=== PATIENT | female | born 1990 | race African-American/Black ===

== ENCOUNTER 2016-12-22 20:59 | Inpatient (IN) | payer MEDICAID ==
[~2016-12-22] VITALS: Ht 165.1 cm; Wt 61.2 kg
[2016-12-22] MEDS ORDERED: LACTATED RINGERS 1,000 ML IV SCH (21:27)
[2016-12-22] MEDS ORDERED: DEXT 5%/LR + PITOCIN 20UNITS/L 1,000 ML IV SCH ×2 (21:27→23:04)
[2016-12-22] MEDS ORDERED: NALOXONE HCL 0.4 MG/ML 1ML VIAL IM PRN (21:30)
[2016-12-22] MEDS ORDERED: METHYLERGONOVINE MALEATE 0.2 MG/ML IM PRN (21:30)
[2016-12-22] MEDS ORDERED: CARBOPROST TROMETHAMINE 250 MCG/ML AMPUL IM PRN (21:30)
[2016-12-22] MEDS ORDERED: MISOPROSTOL 100MCG TABLET VG SCH (21:30)
[2016-12-22 21:41] LABS: BASOPHILS % 0.2 % (0.0-2.0); HEMOGLOBIN. 11.7 g/dL (12.0-16.0); LYMPHOCYTES % 18.4 % (20.0-50.0); MEAN CORPUSCULAR HEMOGLOBIN 29.2 pg (28.0-32.0); MEAN CORPUSCULAR VOLUME 87.7 fL (81.0-99.0); MEAN PLATELET VOLUME 9.6 fl (7.4-10.4); MONOCYTES % 7.7 % (2.0-8.0); NEUTROPHILS % 72.7 % (40.0-76.0); PLATELET 231 x1000/uL (130-400); RED BLOOD CELL COUNT 3.99 mill/uL (4.2-5.4); RED CELL DISTRIBUTION WIDTH 15.1 % (11.6-14.6)
[2016-12-22] MEDS ORDERED: DEXT 5%/LACTATED RINGERS 1,000 ML IV ONE (21:45)
[2016-12-22 21:51] LABS: INR 0.9; PARTIAL THROMBOPLASTIN TIME 31.4 sec (24.0-34.0); PROTHROMBIN TIME 9.4 sec
[2016-12-22] MEDS ORDERED: MORPHINE SULFATE/PF 1MG/ML 10ML AMP ONE (22:23)
[2016-12-22] MEDS ORDERED: LIDOCAINE HCL 1% 20ML VIAL (Pyxis) INJ ONE (22:31)
[2016-12-22] MEDS ORDERED: PROPOFOL 200MG/20ML VIAL IV ONE (22:31)
[2016-12-22] MEDS ORDERED: FENTANYL CITRATE/PF 50MCG/ML 2ML VIAL ONE ×3 (22:31→22:48)
[2016-12-22] MEDS ORDERED: SUCCINYLCHOLINE CHLORIDE 200MG/10ML VIAL IV ONE (22:33)
[2016-12-22 22:39] LABS: RUBELLA IGG 12.2 IU/mL (4.99-10)
[2016-12-22 22:40] LABS: HEPATITIS B SURFACE ANTIGEN NEGATIVE
[2016-12-22] MEDS ORDERED: OXYTOCIN 10 UNITS/ML 1ML ONE (23:02)
[2016-12-22] MEDS ORDERED: DEXAMETHASONE 4MG/ML 1ML VIAL ONE (23:02)
[2016-12-22] MEDS ORDERED: EPHEDRINE SULFATE 50MG/ML VIAL ONE (23:02)
[2016-12-22] MEDS ORDERED: SODIUM CHLORIDE 0.9% 10ML VIAL ONE (23:02)
[2016-12-22] MEDS ORDERED: PHENYLEPHRINE HCL 10 MG/ML 1ML (IV VIAL) IV ONE (23:03)
[2016-12-22] MEDS ORDERED: LANOLIN OINT 0.25 GM TUBE TOP PRN (23:15)
[2016-12-22] MEDS ORDERED: ACETAMINOPHEN WITH CODEINE 300/30MG TABLET PO PRN (23:15)
[2016-12-22] MEDS ORDERED: MORPHINE SULFATE 5 MG/ML VIAL IM PRN (23:15)
[2016-12-22] MEDS ORDERED: ACETAMINOPHEN 500MG TABLET PO PRN (23:15)
[2016-12-22] MEDS ORDERED: HEMORRHOIDAL SUPP PR PRN (23:15)
[2016-12-22] MEDS ORDERED: DIPHENHYDRAMINE 25MG CAPSULE PO PRN (23:15)
[2016-12-22] MEDS ORDERED: BISACODYL 10MG SUPP PR PRN (23:15)
[2016-12-22] MEDS ORDERED: RHO(D) IMMUNE GLOBULIN 300 MCG/SYR IM PRN (23:15)
[2016-12-22] MEDS ORDERED: MIDAZOLAM HCL 2 MG/2 ML VIAL ONE (23:17)
[2016-12-22] MEDS ORDERED: DIPHENHYDRAMINE 50MG/ML VIAL IV PRN (23:30)
[2016-12-22] MEDS ORDERED: NALOXONE HCL 0.4 MG/ML 1ML VIAL IV PRN (23:30)
[2016-12-22] MEDS ORDERED: ONDANSETRON HCL 4MG/2ML VIAL IV PRN (23:30)
[2016-12-22] MEDS ORDERED: MORPHINE SULFATE 4 MG/ML CPJ (NOT FOR IM USE) IV PRN (23:30)
[2016-12-22 23:37] LABS: CLARITY URINE CLEAR (CLEAR); COLOR URINE YELLOW (YELLOW); GLUCOSE URINE 1+ (NEGATIVE); KETONES URINE NEGATIVE (NEGATIVE); LEUKOCYTE ESTERASE URINE NEGATIVE (NEGATIVE); NITRITE URINE NEGATIVE (NEGATIVE); OCCULT BLOOD URINE TRACE (NEGATIVE); PROTEIN URINE NEGATIVE (NEGATIVE); SPECIFIC GRAVITY URINE 1.006 (1.005-1.030); UROBILINOGEN URINE 0.2 E.U./dL (0.2-1.0)
[2016-12-23] VITALS (8 sets, daily range): BP systolic 109–128; BP diastolic 67–85
[2016-12-23 00:27] LABS: *AMPHETAMINES SCREEN URINE NEGATIVE (NEGATIVE); *BARBITURATES SCREEN URINE NEGATIVE (NEGATIVE); *BENZODIAZEPINES SCREEN URINE NEGATIVE (NEGATIVE); CANNABINOID URINE SCREEN NEGATIVE (NEGATIVE); METHADONE URINE SCREEN NEGATIVE (NEGATIVE); OPIATES URINE SCREEN NEGATIVE (NEGATIVE); PHENCYCLIDINE URINE SCREEN NEGATIVE (NEGATIVE)
[2016-12-23 00:43] LABS: *COCAINE SCREEN URINE PRESUMTIVE POSITIVE (NEGATIVE)
[2016-12-23] MEDS: KETOROLAC 30MG/ML VIAL IV SCH ×2 (09:12→15:31)
[2016-12-23] MEDS: PRENATAL VIT/FE FUMARATE/FA TABLET PO SCH (09:13)
[2016-12-23] MEDS: SIMETHICONE 80MG TABLET CHEW PO SCH ×3 (09:13→15:35)
[2016-12-23] MEDS: FERROUS SULFATE 325MG TABLET PO SCH ×2 (13:00→15:35)
[2016-12-23 16:50] LABS: BASOPHILS % 0.1 % (0.0-2.0); EOSINOPHILS % 0.1 % (0.0-5.0); HEMATOCRIT. 28.4 % (36.0-48.0); HEMOGLOBIN. 9.5 g/dL (12.0-16.0); LYMPHOCYTES % 11.7 % (20.0-50.0); MEAN CORPUSCULAR HEMOGLOBIN 29.4 pg (28.0-32.0); MEAN CORPUSCULAR VOLUME 87.8 fL (81.0-99.0); MEAN PLATELET VOLUME 10.3 fl (7.4-10.4); MONOCYTES % 8.7 % (2.0-8.0); NEUTROPHILS % 79.4 % (40.0-76.0); PLATELET 217 x1000/uL (130-400); RED BLOOD CELL COUNT 3.23 mill/uL (4.2-5.4); RED CELL DISTRIBUTION WIDTH 15.7 % (11.6-14.6)
[2016-12-23] MEDS: DOCUSATE SODIUM 100MG CAPSULE PO SCH (20:53)
[2016-12-24] VITALS: BP 110/69
[2016-12-24] MEDS: OXYCODONE HCL/ACETAMINOPHEN 5/325MG TABLET PO PRN ×2 (03:59→14:11)
[2016-12-24] MEDS: SIMETHICONE 80MG TABLET CHEW PO SCH ×5 (04:01→21:05)
[2016-12-24 04:15] VITALS: BP 112/71
[2016-12-24 07:55] VITALS: BP 110/74
[2016-12-24] MEDS: FERROUS SULFATE 325MG TABLET PO SCH ×3 (08:31→18:29)
[2016-12-24] MEDS: PRENATAL VIT/FE FUMARATE/FA TABLET PO SCH (08:31)
[2016-12-24 13:00] VITALS: BP 119/72
[2016-12-24 16:45] VITALS: BP 123/72
[2016-12-24] MEDS ORDERED: TETANUS AND DIPHTHERIA TOX/PF 0.5ML SYR (ADULT) IM ONE (18:00)
[2016-12-24 20:10] VITALS: BP 112/77
[2016-12-24] MEDS: DOCUSATE SODIUM 100MG CAPSULE PO SCH (21:04)
[2016-12-25 04:30] VITALS: BP 110/66
[2016-12-25] MEDS: OXYCODONE HCL/ACETAMINOPHEN 5/325MG TABLET PO PRN (05:47)
[2016-12-25 08:00] VITALS: BP 110/67
[2016-12-25] MEDS ORDERED: TETANUS, DIPHTHERIA, PERTUSSIS VAC/PF 0.5ML (>7YR OLD) IM ONE (14:00)
[2016-12-30 04:36] LABS: COCAINE CONFIRMATION URINE Positive (.)
== END 2016-12-25 15:00 | disposition home or self-care (01) | DRG 540 ==
LOC: OBSVTOIN 20:59 → L&D 20:59 → 7EST PP/OB 12-23 02:30
PROVIDERS: ADMIT Obstetrics & Gynecology; ATTEND Obstetrics & Gynecology
PROC: 10D00Z1 Extraction of Products of Conception, Low, Open Approach (ICD-10-PCS; principal; 2016-12-22 23:59)
DX: O34.211 Maternal care for low transverse scar from previous cesarean delivery (principal); O45.93 Premature separation of placenta, unspecified, third trimester; Z37.0 Single live birth; Z3A.33 33 weeks gestation of pregnancy; O90.81 Anemia of the puerperium; D62 Acute posthemorrhagic anemia
CPT/HCPCS: 36415; 76815; 80305; 80353; 81001; 85025; 85610; 85730; 86592; 86703; 86762; 86850; 86900; 87340; 88307; 90714; 90715; A4216; J0171; J0330; J1100; J1200; J1885; J2250; J2274; J2370; J2590; J2704; J3010; J3490; J7120; A4315

== ENCOUNTER 2017-11-14 00:58 | Inpatient (IN) | payer MEDICAID ==
[~2017-11-14] VITALS: Ht 162.6 cm; Wt 68.0 kg
[2017-11-14] MEDS ORDERED: LACTATED RINGERS 1,000 ML IV SCH (01:15)
[2017-11-14] MEDS ORDERED: TERBUTALINE SULFATE 1MG/ML VIAL SUBCUT NR (01:15)
[2017-11-14] MEDS ORDERED: CARBOPROST TROMETHAMINE 250 MCG/ML AMPUL IM PRN (02:30)
[2017-11-14] MEDS ORDERED: MISOPROSTOL 100MCG TABLET VG SCH (02:30)
[2017-11-14] MEDS ORDERED: NALOXONE HCL 0.4 MG/ML 1ML VIAL IM PRN (02:30)
[2017-11-14] MEDS ORDERED: METHYLERGONOVINE MALEATE 0.2 MG/ML IM PRN (02:30)
[2017-11-14] MEDS ORDERED: PHENYLEPHRINE HCL 10 MG/ML 1ML (IV VIAL) IV ONE (02:38)
[2017-11-14] MEDS ORDERED: FENTANYL CITRATE/PF 50MCG/ML 2ML VIAL ONE (02:38)
[2017-11-14] MEDS ORDERED: MORPHINE SULFATE/PF 1MG/ML 10ML AMP ONE (02:38)
[2017-11-14] MEDS ORDERED: GLYCOPYRROLATE 0.2 MG/ML 2ML VIAL ONE (02:40)
[2017-11-14] MEDS ORDERED: EPHEDRINE SULFATE 50MG/ML VIAL ONE (02:44)
[2017-11-14] MEDS ORDERED: PROPOFOL 200MG/20ML VIAL IV ONE (02:51)
[2017-11-14] MEDS ORDERED: LIDOCAINE HCL 1% 20ML VIAL (Pyxis) INJ ONE (02:52)
[2017-11-14 02:54] LABS: BASOPHILS % 0.5 % (0.0-2.0); EOSINOPHILS % 0.1 % (0.0-5.0); HEMATOCRIT. 31.6 % (36.0-48.0); HEMOGLOBIN. 10.8 g/dL (12.0-16.0); LYMPHOCYTES % 12.2 % (20.0-50.0); MEAN CORPUSCULAR HEMOGLOBIN 31.2 pg (28.0-32.0); MEAN CORPUSCULAR VOLUME 91.1 fL (81.0-99.0); MEAN PLATELET VOLUME 9.1 fl (7.4-10.4); MONOCYTES % 7.4 % (2.0-8.0); NEUTROPHILS % 79.8 % (40.0-76.0); PLATELET 200 x1000/uL (130-400); RED BLOOD CELL COUNT 3.47 mill/uL (4.2-5.4); RED CELL DISTRIBUTION WIDTH 14.6 % (11.6-14.6)
[2017-11-14 02:59] LABS: CHLORIDE 111 mEq/L (98-107)
[2017-11-14] MEDS ORDERED: DEXT 5%/LR + PITOCIN 20UNITS/L 1,000 ML IV SCH (03:00)
[2017-11-14 03:02] LABS: INR 0.9; PARTIAL THROMBOPLASTIN TIME 29.9 sec (23.4-31.0); PROTHROMBIN TIME 9.8 sec (9.4-11.6)
[2017-11-14] MEDS ORDERED: ROCURONIUM BROMIDE 10MG/ML VIAL 5ML IV ONE (03:02)
[2017-11-14] MEDS ORDERED: OXYTOCIN 10 UNITS/ML 1ML ONE (03:11)
[2017-11-14] MEDS ORDERED: CEFAZOLIN SODIUM 1000MG/VIAL ONE (03:11)
[2017-11-14 03:16] LABS: CLARITY URINE CLEAR (CLEAR); COLOR URINE YELLOW (YELLOW); KETONES URINE TRACE (NEGATIVE); LEUKOCYTE ESTERASE URINE TRACE (NEGATIVE); NITRITE URINE NEGATIVE (NEGATIVE); OCCULT BLOOD URINE 3+ (NEGATIVE); PROTEIN URINE 2+ (NEGATIVE)
[2017-11-14 03:25] LABS: *AMPHETAMINES SCREEN URINE NEGATIVE (NEGATIVE); *BARBITURATES SCREEN URINE NEGATIVE (NEGATIVE); *BENZODIAZEPINES SCREEN URINE NEGATIVE (NEGATIVE); METHADONE URINE SCREEN NEGATIVE (NEGATIVE); OPIATES URINE SCREEN NEGATIVE (NEGATIVE)
[2017-11-14 03:27] LABS: CANNABINOID URINE SCREEN NEGATIVE (NEGATIVE); PHENCYCLIDINE URINE SCREEN NEGATIVE (NEGATIVE)
[2017-11-14] MEDS ORDERED: IBUPROFEN 400MG TABLET PO PRN (03:30)
[2017-11-14] MEDS ORDERED: HYDROMORPHONE HCL/PF 2MG/ML CPJ IM PRN (03:30)
[2017-11-14] MEDS ORDERED: ONDANSETRON HCL 4MG/2ML VIAL IV PRN ×2 (03:30→04:00)
[2017-11-14] MEDS ORDERED: BISACODYL 10MG SUPP PR PRN (03:30)
[2017-11-14 03:36] LABS: *COCAINE SCREEN URINE PRESUMTIVE POSITIVE (NEGATIVE)
[2017-11-14] MEDS ORDERED: MIDAZOLAM HCL 2 MG/2 ML VIAL ONE (03:36)
[2017-11-14] MEDS ORDERED: HYDROMORPHONE HCL/PF 2MG/ML CPJ IV PRN ×2 (04:00→06:45)
[2017-11-14] MEDS: DEXT 5%/LR + PITOCIN 20UNITS/L 1,000 ML IV SCH ×2 (04:27→15:10)
[2017-11-14] MEDS: FENTANYL CITRATE/PF 50MCG/ML 2ML VIAL IV PRN ×3 (04:28→05:44)
[2017-11-14] MEDS: LACTATED RINGERS 1,000 ML IV SCH ×2 (04:30→20:26)
[2017-11-14] MEDS ORDERED: FERR325T6 PO (04:42)
[2017-11-14] MEDS ORDERED: PNV1TABL76 MT (04:42)
[2017-11-14] MEDS ORDERED: KETOROLAC 30MG/ML VIAL IV ONE (06:30)
[2017-11-14] MEDS: MAGNESIUM/ALUMINUM HYDROXIDE/SIMETHICONE 30ML UDC PO SCH ×5 (07:10→20:41)
[2017-11-14] MEDS: SIMETHICONE 80MG TABLET CHEW PO SCH ×5 (07:40→20:41)
[2017-11-14 08:30] VITALS: BP 113/74
[2017-11-14 09:00] VITALS: BP 130/78
[2017-11-14] MEDS ORDERED: PNEUMOCOCCAL 23-VAL P-SAC VAC 0.5 ML IM ONE (10:00)
[2017-11-14 11:41] LABS: HEPATITIS B SURFACE ANTIGEN NEGATIVE; RUBELLA IGG 14.5 IU/mL (4.99-10)
[2017-11-14 14:00] VITALS: BP 126/70
[2017-11-14] MEDS: HYDROCODONE/ACETAMINOPHEN 5/325MG TABLET PO PRN (15:08)
[2017-11-14 20:30] VITALS: BP 143/83
[2017-11-15 00:30] VITALS: BP 130/82
[2017-11-15 02:00] VITALS: BP 128/77
[2017-11-15] MEDS: HYDROCODONE/ACETAMINOPHEN 5/325MG TABLET PO PRN (02:04)
[2017-11-15 08:00] VITALS: BP 125/68
[2017-11-15] MEDS: SIMETHICONE 80MG TABLET CHEW PO SCH ×5 (08:46→22:32)
[2017-11-15] MEDS: ACETAMINOPHEN WITH CODEINE 300/30MG TABLET PO PRN ×3 (08:46→22:33)
[2017-11-15 09:13] LABS: BASOPHILS % 0.2 % (0.0-2.0); EOSINOPHILS % 0.4 % (0.0-5.0); HEMATOCRIT. 30.1 % (36.0-48.0); HEMOGLOBIN. 10.3 g/dL (12.0-16.0); LYMPHOCYTES % 19.9 % (20.0-50.0); MEAN CORPUSCULAR HEMOGLOBIN 30.8 pg (28.0-32.0); MEAN CORPUSCULAR VOLUME 90.6 fL (81.0-99.0); MEAN PLATELET VOLUME 9.1 fl (7.4-10.4); MONOCYTES % 10.2 % (2.0-8.0); NEUTROPHILS % 69.3 % (40.0-76.0); PLATELET 227 x1000/uL (130-400); RED BLOOD CELL COUNT 3.33 mill/uL (4.2-5.4); RED CELL DISTRIBUTION WIDTH 14.6 % (11.6-14.6)
[2017-11-15 16:53] VITALS: BP 117/72
[2017-11-15] MEDS: FERROUS SULFATE 325MG TABLET PO SCH (17:28)
[2017-11-15 19:30] VITALS: BP 109/70
[2017-11-15] MEDS: MAGNESIUM/ALUMINUM HYDROXIDE/SIMETHICONE 30ML UDC PO SCH ×3 (21:00→22:30)
[2017-11-15 23:00] VITALS: BP 115/72
[2017-11-16 03:00] VITALS: BP 112/75
[2017-11-16 08:50] VITALS: BP 127/76
[2017-11-16] MEDS: ACETAMINOPHEN WITH CODEINE 300/30MG TABLET PO PRN ×2 (08:52→21:18)
[2017-11-16] MEDS: SIMETHICONE 80MG TABLET CHEW PO SCH ×3 (08:54→21:15)
[2017-11-16] MEDS: FERROUS SULFATE 325MG TABLET PO SCH ×3 (09:00→17:00)
[2017-11-16 16:50] VITALS: BP 123/77
[2017-11-16] MEDS: MAGNESIUM/ALUMINUM HYDROXIDE/SIMETHICONE 30ML UDC PO SCH ×2 (17:00→21:12)
[2017-11-16 19:35] VITALS: BP 127/76
[2017-11-17 08:00] VITALS: BP 129/75
[2017-11-21 04:07] LABS: COCAINE CONFIRMATION URINE Positive (.)
== END 2017-11-17 09:30 | disposition home or self-care (01) | DRG 540 ==
LOC: OBSVTOIN 00:58 → L&D 00:58 → 7EST PP/OB 08:07
PROVIDERS: ADMIT Obstetrics & Gynecology; ATTEND Obstetrics & Gynecology
PROC: 10D00Z1 Extraction of Products of Conception, Low, Open Approach (ICD-10-PCS; principal; 2017-11-14 03:40)
DX: O34.211 Maternal care for low transverse scar from previous cesarean delivery (principal); O48.0 Post-term pregnancy; O77.0 Labor and delivery complicated by meconium in amniotic fluid; Z37.0 Single live birth; Z3A.00 Weeks of gestation of pregnancy not specified
CPT/HCPCS: 36415; 76805; 76818; 80053; 80305; 80353; 81003; 85025; 85610; 85730; 86592; 86703; 86762; 86850; 86900; 87340; 88307; J0690; J1170; J1885; J2250; J2274; J2370; J2590; J2704; J3010; J3105; J3490; J7120; A4315

== ENCOUNTER 2018-10-29 12:08 | Inpatient (IN) | payer MEDICAID ==
[~2018-10-29] VITALS: Ht 165.1 cm; Wt 52.2 kg
[~2018-10-29 12:08] MED LIST: FERR325T6 PO; PNV1TABL76 MT
[2018-10-29 14:58] LABS: BASOPHILS % 0.3 % (0.0-2.0); EOSINOPHILS % 1.3 % (0.0-5.0); HEMATOCRIT. 35.4 % (36.0-48.0); HEMOGLOBIN. 11.7 g/dL (12.0-16.0); MEAN CORPUSCULAR HEMOGLOBIN 29.7 pg (28.0-32.0); MEAN CORPUSCULAR VOLUME 89.8 fL (81.0-99.0); MEAN PLATELET VOLUME 10.2 fl (7.4-10.4); MONOCYTES % 9.3 % (2.0-8.0); NEUTROPHILS % 66.1 % (40.0-76.0); PLATELET 201 x1000/uL (130-400); RED BLOOD CELL COUNT 3.94 mill/uL (4.2-5.4); RED CELL DISTRIBUTION WIDTH 15.1 % (11.6-14.6)
[2018-10-29 15:05] LABS: INR 0.9; PROTHROMBIN TIME 9.4 sec (9.1-11.1)
[2018-10-29 15:29] LABS: HEPATITIS B SURFACE ANTIGEN NEGATIVE
[2018-10-29] MEDS: MAGNESIUM 20 G PREMIX (L & D) 500 ML IV SCH (15:38)
[2018-10-29] MEDS ORDERED: AMPICILLIN 2,000 MG in SODIUM CHLORIDE 0.9% 100 ML IV SCH (16:00)
[2018-10-29] MEDS: BETAMETHASONE ACET/BETAMET 30 MG/5 ML VIAL IM SCH (16:10)
[2018-10-29] MEDS ORDERED: AZITHROMYCIN 500 MG in DEXT 5% WATER 250 ML IV SCH (16:30)
[2018-10-29 17:46] LABS: CLARITY URINE CLEAR (CLEAR); COLOR URINE YELLOW (YELLOW); KETONES URINE NEGATIVE (NEGATIVE); LEUKOCYTE ESTERASE URINE NEGATIVE (NEGATIVE); NITRITE URINE NEGATIVE (NEGATIVE); OCCULT BLOOD URINE NEGATIVE (NEGATIVE); PROTEIN URINE NEGATIVE (NEGATIVE); SPECIFIC GRAVITY URINE 1.012 (1.005-1.030); UROBILINOGEN URINE 0.2 E.U./dL (0.2-1.0)
[2018-10-29 17:57] LABS: *AMPHETAMINES SCREEN URINE NEGATIVE (NEGATIVE); *BARBITURATES SCREEN URINE NEGATIVE (NEGATIVE); *BENZODIAZEPINES SCREEN URINE NEGATIVE (NEGATIVE)
[2018-10-29 17:58] LABS: CANNABINOID URINE SCREEN NEGATIVE (NEGATIVE); METHADONE URINE SCREEN NEGATIVE (NEGATIVE); OPIATES URINE SCREEN NEGATIVE (NEGATIVE); PHENCYCLIDINE URINE SCREEN NEGATIVE (NEGATIVE)
[2018-10-29 18:01] LABS: *COCAINE SCREEN URINE PRESUMTIVE POSITIVE (NEGATIVE)
[2018-10-29] MEDS ORDERED: BUTORPHANOL TARTRATE 2 MG/ML VIAL IM PRN (18:30)
[2018-10-29] MEDS: LACTATED RINGERS 1,000 ML IV SCH (22:01)
[2018-10-29] MEDS: AMPICILLIN 1,000 MG in SODIUM CHLORIDE 0.9% 50 ML IV SCH (22:15)
[2018-10-29] MEDS ORDERED: BUTORPHANOL TARTRATE 2 MG/ML VIAL IV NR (23:00)
[2018-10-30] MEDS: AMPICILLIN 1,000 MG in SODIUM CHLORIDE 0.9% 50 ML IV SCH ×2 (04:10→10:06)
[2018-10-30] MEDS: LACTATED RINGERS 1,000 ML IV SCH (06:15)
[2018-10-30] MEDS ORDERED: DEXT 5%/LACTATED RINGERS 1,000 ML IV SCH (09:00)
[2018-10-30] MEDS: MAGNESIUM 20 G PREMIX (L & D) 500 ML IV SCH (11:02)
[2018-10-30] MEDS ORDERED: MAGNESIUM 20 G PREMIX (L & D) 500 ML IV SCH (11:30)
[2018-10-30] MEDS: BETAMETHASONE ACET/BETAMET 30 MG/5 ML VIAL IM SCH (12:12)
[2018-10-30] MEDS ORDERED: CEFAZOLIN SODIUM 1000MG/VIAL ONE (12:27)
[2018-10-30] MEDS ORDERED: OXYTOCIN 10 UNITS/ML 1ML ONE (12:27)
[2018-10-30] MEDS ORDERED: MORPHINE SULFATE/PF 1MG/ML 10ML AMP ONE (12:27)
[2018-10-30] MEDS ORDERED: SODIUM CHLORIDE 0.9% 10ML VIAL ONE ×2 (12:27→12:32)
[2018-10-30] MEDS ORDERED: PHENYLEPHRINE HCL 10 MG/ML 1ML (IV VIAL) IV ONE (12:28)
[2018-10-30] MEDS ORDERED: EPHEDRINE SULFATE 50MG/ML VIAL ONE (12:28)
[2018-10-30] MEDS ORDERED: CITRIC ACID/SODIUM CITRATE SOLN 30ML UDC PO STA (12:35)
[2018-10-30 12:59] LABS: CHLORIDE 111 mEq/L (98-107)
[2018-10-30] MEDS ORDERED: ONDANSETRON HCL 4MG/2ML INJ ONE (13:57)
[2018-10-30] MEDS ORDERED: DEXT 5%/LR + PITOCIN 20UNITS/L 1,000 ML IV SCH (14:28)
[2018-10-30] MEDS ORDERED: LANOLIN OINT 0.25 GM TUBE TOP PRN (14:30)
[2018-10-30] MEDS ORDERED: ONDANSETRON HCL 4MG/2ML INJ IV PRN ×2 (14:30→17:00)
[2018-10-30] MEDS ORDERED: IBUPROFEN 400MG TABLET PO PRN (14:30)
[2018-10-30] MEDS ORDERED: HYDROCODONE/ACETAMINOPHEN 5/325MG TABLET PO PRN (14:30)
[2018-10-30 15:05] LABS: BG BASE EXCESS -5.7 mmol/L (-2.0-2.0); BG FRACTION INSPIRED OXYGEN 21; BG HCO3 ACT 21.4 mmol/L (22.0-26.0); BG PCO2 47.5 mmHg (35.0-45.0); BG PH 7.271 (7.350-7.450); BG PO2 < 30.3 mmHg (75.0-100.0); BG SAMPLE SITE CORD; BG VENT MODE CORD UV
[2018-10-30 15:06] LABS: BG BASE EXCESS -6.8 mmol/L (-2.0-2.0); BG FRACTION INSPIRED OXYGEN 21; BG HCO3 ACT 21.4 mmol/L (22.0-26.0); BG PCO2 53.6 mmHg (35.0-45.0); BG SAMPLE SITE CORD; BG VENT MODE CORD UA
[2018-10-30] MEDS ORDERED: INFLUENZA VIRUS VACCINE(AFLURIA) 0.5ML SYR IM ONE (16:00)
[2018-10-30] MEDS ORDERED: TETANUS, DIPHTHERIA, PERTUSSIS VAC/PF 0.5ML (>7YR OLD) IM ONE (16:00)
[2018-10-30] MEDS ORDERED: DIPHENHYDRAMINE 50MG/ML VIAL IV PRN ×3 (16:15→17:00)
[2018-10-30] MEDS ORDERED: MAGNESIUM/ALUMINUM HYDROXIDE/SIMETHICONE 30ML UDC PO SCH (17:00)
[2018-10-30] MEDS ORDERED: MEPERIDINE HCL/PF 25MG/ML CPJ IV PRN (17:00)
[2018-10-30] MEDS ORDERED: CITRIC ACID/SODIUM CITRATE SOLN 30ML UDC PO NR (17:00)
[2018-10-30] MEDS ORDERED: METOCLOPRAMIDE HCL 10MG/2ML VIAL IV PRN (17:00)
[2018-10-30] MEDS ORDERED: SIMETHICONE 80MG TABLET CHEW PO SCH (17:00)
[2018-10-30] MEDS ORDERED: KETOROLAC 30MG/ML VIAL IV PRN (17:00)
[2018-10-30 18:00] VITALS: BP 122/63
[2018-10-30 19:05] VITALS: BP 117/67
[2018-10-30] MEDS ORDERED: DOCUSATE SODIUM 100MG CAPSULE PO SCH (21:00)
[2018-10-30] MEDS ORDERED: DIPHENHYDRAMINE 25MG CAPSULE PO PRN (21:00)
[2018-10-30] MEDS: KETOROLAC 30MG/ML VIAL IV SCH (22:00)
[2018-10-30 23:15] VITALS: BP 120/72
[2018-10-30] MEDS: DIPHENHYDRAMINE 50MG/ML VIAL IV PRN (23:30)
[2018-10-31] MEDS: DIPHENHYDRAMINE 50MG/ML VIAL IV PRN (01:58)
[2018-10-31 03:00] VITALS: BP 115/58
[2018-10-31] MEDS: KETOROLAC 30MG/ML VIAL IV SCH (04:15)
[2018-10-31 06:08] LABS: BASOPHILS % 0.1 % (0.0-2.0); HEMATOCRIT. 29.4 % (36.0-48.0); HEMOGLOBIN. 9.8 g/dL (12.0-16.0); LYMPHOCYTES % 7.5 % (20.0-50.0); MEAN CORPUSCULAR HEMOGLOBIN 30.4 pg (28.0-32.0); MEAN CORPUSCULAR VOLUME 90.8 fL (81.0-99.0); MEAN PLATELET VOLUME 10.6 fl (7.4-10.4); MONOCYTES % 6.8 % (2.0-8.0); NEUTROPHILS % 85.6 % (40.0-76.0); PLATELET 170 x1000/uL (130-400); RED BLOOD CELL COUNT 3.23 mill/uL (4.2-5.4); RED CELL DISTRIBUTION WIDTH 15.4 % (11.6-14.6)
[2018-10-31] MEDS ORDERED: FERROUS SULFATE 325MG TABLET PO SCH (07:30)
[2018-10-31 08:00] VITALS: BP 107/58
[2018-10-31] MEDS: IBUPROFEN 800MG TABLET PO PRN ×2 (08:32→20:40)
[2018-10-31] MEDS ORDERED: PRENATAL VIT/FE FUMARATE/FA TABLET PO SCH (09:00)
[2018-10-31 16:36] VITALS: BP 128/73
[2018-10-31 20:00] VITALS: BP 123/72
[2018-11-01] VITALS: BP 123/58
[2018-11-01 04:00] VITALS: BP 123/75
[2018-11-01] MEDS: IBUPROFEN 800MG TABLET PO PRN (04:06)
[2018-11-01 07:30] VITALS: BP 128/71
[2018-11-06 14:15] LABS: COCAINE CONFIRMATION URINE Positive (.)
== END 2018-11-01 11:42 | disposition left against medical advice (07) | DRG 540 ==
LOC: OBSVTOIN 12:08 → 8 EST LDRP 12:08 → 8EST 10-30 18:00
PROVIDERS: ADMIT Obstetrics & Gynecology; ATTEND Obstetrics & Gynecology
PROC: 10D00Z1 Extraction of Products of Conception, Low, Open Approach (ICD-10-PCS; principal; 2018-10-30)
DX: O34.211 Maternal care for low transverse scar from previous cesarean delivery (principal); O41.03X0 Oligohydramnios, third trimester, not applicable or unspecified; O99.324 Drug use complicating childbirth; Z3A.35 35 weeks gestation of pregnancy; F19.10 Other psychoactive substance abuse, uncomplicated; O99.02 Anemia complicating childbirth; D64.9 Anemia, unspecified; F14.10 Cocaine abuse, uncomplicated; O99.334 Smoking (tobacco) complicating childbirth; Z37.0 Single live birth; F17.210 Nicotine dependence, cigarettes, uncomplicated; O42.913 Preterm premature rupture of membranes, unspecified as to length of time between rupture and onset of labor, third trimester; O76 Abnormality in fetal heart rate and rhythm complicating labor and delivery
CPT/HCPCS: 36415; 36600; 76805; 76818; 80305; 80353; 82805; 83735; 86592; 86703; 86762; 86850; 86900; 86920; 87340; 88307; 99281; G0378; J0290; J0456; J0595; J0690; J0702; J1200; J1885; J2274; J2370; J2405; J2590; J3475; J3490; J7050; J7060; J7120; A4315

== ENCOUNTER 2024-06-02 17:47 | Emergency (ER) | payer MEDICAID | END 2024-06-02 20:16 | disposition left against medical advice (07) | LOC: ER 17:47 | DX: R53.1 Weakness (principal); Z53.21 Procedure and treatment not carried out due to patient leaving prior to being seen by health care provider ==

== ENCOUNTER 2024-06-04 05:16 | Emergency (ER) | payer MEDICAID, OTHER ==
[~2024-06-04] VITALS: Ht 167.6 cm; Wt 105.0 kg
[2024-06-04 05:29] VITALS: BP 130/63; PULSE 83; RESP 16; TEMP 98.7; O2SAT 100
[2024-06-04 05:45] LABS: CLARITY URINE CLEAR (CLEAR); COLOR URINE YELLOW (YELLOW); GLUCOSE URINE NEGATIVE (NEGATIVE); KETONES URINE NEGATIVE (NEGATIVE); LEUKOCYTE ESTERASE URINE NEGATIVE (NEGATIVE); NITRITE URINE NEGATIVE (NEGATIVE); OCCULT BLOOD URINE NEGATIVE (NEGATIVE); PROTEIN URINE NEGATIVE (NEGATIVE); SPECIFIC GRAVITY URINE 1.029 (1.005-1.030)
[2024-06-04 05:59] LABS: EOSINOPHILS % 1.7 % (0.0-5.0); HEMATOCRIT. 37.5 % (36.0-48.0); HEMOGLOBIN. 12.3 g/dL (12.0-16.0); LYMPHOCYTES % 29.1 % (20.0-50.0); MEAN CORPUSCULAR HEMOGLOBIN 26.6 pg (28.0-32.0); MEAN CORPUSCULAR HGB CONC 32.8 g/dL (31.0-37.0); MEAN CORPUSCULAR VOLUME 81.2 fL (81.0-99.0); MEAN PLATELET VOLUME 8.6 fl (7.4-10.4); MONOCYTES % 6.3 % (2.0-8.0); NEUTROPHILS % 61.9 % (40.0-76.0); PLATELET 324 x1000/uL (130-400); RED BLOOD CELL COUNT 4.61 mill/uL (4.2-5.4); RED CELL DISTRIBUTION WIDTH 17.2 % (11.6-14.6); WHITE BLOOD COUNT 8.8 x1000/uL (4.5-11.0)
[2024-06-04 06:07] LABS: CHLORIDE 108 mEq/L (98-107); POTASSIUM 3.6 mEq/L (3.5-5.1); SODIUM 138 mEq/L (136-145)
[2024-06-04 06:08] LABS: CARBON DIOXIDE 25 mEq/L (21-32)
[2024-06-04 06:09] LABS: CALCIUM 9.4 mg/dL (8.7-10.4)
[2024-06-04 06:12] LABS: HCG SCREEN POSITIVE
[2024-06-04 06:13] LABS: CREATININE 0.6 mg/dL (0.6-1.0); GLUCOSE 102 mg/dL (70-105)
[2024-06-04 06:14] LABS: UREA NITROGEN BLOOD 7 mg/dL (9-23)
== END 2024-06-04 08:42 | disposition home or self-care (01) ==
LOC: ER 05:16
DX: O26.891 Other specified pregnancy related conditions, first trimester (principal); Z98.890 Other specified postprocedural states; Z3A.01 Less than 8 weeks gestation of pregnancy
CPT/HCPCS: 36415; 76801; 80048; 81003; 81025; 84702; 84703; 85025; 99284

== ENCOUNTER 2024-08-22 13:01 | Emergency (ER) | payer SELFPAY ==
[~2024-08-22] VITALS: Ht 175.3 cm; Wt 73.0 kg
[2024-08-22 13:19] VITALS: BP 153/75; PULSE 120; RESP 18; TEMP 100.2; O2SAT 98
[2024-08-22] MEDS ORDERED: ACETAMINOPHEN 325MG TABLET PO PRN (13:30)
== END 2024-08-22 13:40 | disposition left against medical advice (07) ==
LOC: ER 13:01
DX: O26.891 Other specified pregnancy related conditions, first trimester (principal); R05.1 Acute cough; Z3A.12 12 weeks gestation of pregnancy; Z98.890 Other specified postprocedural states
CPT/HCPCS: 99283

== ENCOUNTER 2024-08-27 20:47 | Emergency (ER) | payer SELFPAY ==
[~2024-08-27] VITALS: Ht 167.6 cm; Wt 84.2 kg
[2024-08-27 20:54] VITALS: O2SAT 99
[2024-08-28] MEDS: ACETAMINOPHEN 500MG TABLET PO ONE (01:00)
[2024-08-28 03:38] LABS: BASOPHILS % 0.2 % (0.0-2.0); EOSINOPHILS % 0.8 % (0.0-5.0); HEMATOCRIT. 33.6 % (36.0-48.0); HEMOGLOBIN. 11.3 g/dL (12.0-16.0); LYMPHOCYTES % 17.7 % (20.0-50.0); MEAN CORPUSCULAR HEMOGLOBIN 28.3 pg (28.0-32.0); MEAN CORPUSCULAR HGB CONC 33.6 g/dL (31.0-37.0); MEAN CORPUSCULAR VOLUME 84.1 fL (81.0-99.0); MEAN PLATELET VOLUME 8.3 fl (7.4-10.4); MONOCYTES % 10.2 % (2.0-8.0); NEUTROPHILS % 71.1 % (40.0-76.0); PLATELET 361 x1000/uL (130-400); RED BLOOD CELL COUNT 3.99 mill/uL (4.2-5.4); RED CELL DISTRIBUTION WIDTH 18.5 % (11.6-14.6); WHITE BLOOD COUNT 11.1 x1000/uL (4.5-11.0)
[2024-08-28 03:42] LABS: CHLORIDE 107 mEq/L (98-107); POTASSIUM 3.6 mEq/L (3.5-5.1); SODIUM 140 mEq/L (136-145)
[2024-08-28 03:43] LABS: CARBON DIOXIDE 23 mEq/L (21-32)
[2024-08-28 03:44] LABS: CALCIUM 9.2 mg/dL (8.7-10.4)
[2024-08-28 03:48] LABS: CREATININE 0.5 mg/dL (0.6-1.0); GLUCOSE 109 mg/dL (70-105)
[2024-08-28 04:07] LABS: B-HCG QUANTITATIVE 18008 mIU/mL (<3); UREA NITROGEN BLOOD < 5 mg/dL (9-23)
[2024-08-28] MEDS ORDERED: AMOX1TAB16 MT (04:32)
[2024-08-28 04:40] VITALS: BP 138/79; PULSE 101; RESP 19; TEMP 37.11408; O2SAT 100
[2024-08-28] MEDS ORDERED: ACETAMINOPHEN 325MG TABLET PO ONE (05:00)
== END 2024-08-28 04:41 | disposition home or self-care (01) ==
LOC: ER 20:47
DX: O99.512 Diseases of the respiratory system complicating pregnancy, second trimester (principal); J18.9 Pneumonia, unspecified organism; I10 Essential (primary) hypertension; Z3A.19 19 weeks gestation of pregnancy; Z98.890 Other specified postprocedural states
CPT/HCPCS: 36415; 71045; 76805; 80048; 81025; 84702; 85025; 99284